=== PATIENT | male | born 1990 | race Caucasian/White ===

== ENCOUNTER 2019-01-11 10:11 | Emergency (ER) | payer SELFPAY ==
[~2019-01-11] VITALS: Ht 180.3 cm; Wt 95.3 kg
[2019-01-11] MEDS ORDERED: DIAZEPAM INJ 10 MG/2 ML (VALIUM) SYR IVP ONE (10:30)
--- NOTE | 2019-01-11 10:32 | ED Neurological Problem ---
General Chief Complaint: Abdominal/GI Problems Stated Complaint: VOMITING; DIZZINESS Nursing Triage Note: WHILE WORKING ON THE [employer] THIS AM HE BECAME DIZZY AND VOMITED 3 TIMES THIS AM. Nursing Sepsis Screen: No Definite Risk Source: patient, family Exam Limitations: no limitations History of Present Illness Date Seen by Provider: Jan 11, 2019 Time Seen by Provider: 10:29 Initial Comments This 28-year-old male presents with dizziness that began this morning after he was up and had gone to work. Patient has had secondary nausea and vomiting. He has had no similar episodes in the past. He denies associated fever, chills, headache, stiff neck, or photophobia. He denies associated lateralizing or localizing neurologic complaints. The patient states that turning his eyes to the left makes his symptoms worse. Allergies and Home Medications Allergies Coded Allergies: No Known Drug Allergies (Unverified , 01/11/19) Patient Home Medication List Home Medication List Reviewed: Yes Review of Systems Review of Systems Constitutional: No chills; dizziness; No fever, No weakness Eyes: Denies Blurred Vision; Other Ears, Nose, Mouth, Throat: denies ear pain (patient's dizziness is made worse by looking to his left), denies ear discharge, denies nose discharge, denies epistaxis Respiratory: No cough Cardiovascular: No chest pain Gastrointestinal: No abdominal pain, No diarrhea; nausea, vomiting Genitourinary: no symptoms reported Musculoskeletal: no symptoms reported Skin: no symptoms reported Psychiatric/Neurological: No Symptoms Reported Endocrine: No Symptoms Reported Hematologic/Lymphatic: No Symptoms Reported Past Gmyqbkt-Yovpma-Npovhc Hx Past Med/Social Hx: Reviewed Nursing Past Med/Soc Hx Patient Social History Alcohol Use: Denies Use Recreational Drug Use: No Smoking Status: Never a Smoker 2nd Hand Smoke Exposure: No Recent Foreign Travel: No Contact w/Someone Who Travel: No Recent Infectious Disease Expo: No Recent Hopitalizations: No Physical Abuse: No Sexual Abuse: No Mistreated: No Fear: No Seasonal Allergies Seasonal Allergies: No Past Medical History Surgeries: No Respiratory: No Cardiac: No Neurological: No Genitourinary: No Gastrointestinal: No Musculoskeletal: No Endocrine: No HEENT: No Cancer: No Psychosocial: No Integumentary: No Blood Disorders: No Physical Exam Vital Signs Vital Signs - First Documented 01/11/19 10:23 Temp 97.2 Pulse 72 Resp 18 B/P (MAP) 120/77 (91) Pulse Ox 97 O2 Delivery Room Air Capillary Refill : Less Than 3 Seconds Height, Weight, BMI Height: 5'11.00" Weight: 210lbs. oz. 95.125899uq; BMI Method:Stated General Appearance: WD/WN, no apparent distress HEENT: normal ENT inspection, other (left lateral nystagmus) Neck: full range of motion, supple Respiratory: lungs clear Cardiovascular: regular rate, rhythm Gastrointestinal: normal bowel sounds, non tender, soft Back: normal inspection Extremities: normal range of motion, non-tender, normal inspection Neurologic/Psychiatric: no motor/sensory deficits, alert, normal mood/affect, oriented x 3 Crainal Nerves: normal speech Motor/Sensory: no motor deficit, no sensory deficit Skin: normal color, warm/dry Progress/Results/Core Measures Results/Orders Lab Results Laboratory Tests Test 01/11/19 10:45 Range/Units White Blood Count 8.2 4.3-11.0 10^3/uL Red Blood Count 5.15 4.35-5.85 10^6/uL Hemoglobin 14.8 13.3-17.7 G/DL Hematocrit 43 40-54 % Mean Corpuscular Volume 84 80-99 FL Mean Corpuscular Hemoglobin 29 25-34 PG Mean Corpuscular Hemoglobin Concent 34 32-36 G/DL Red Cell Distribution Width 12.7 10.0-14.5 % Platelet Count 205 130-400 10^3/uL Mean Platelet Volume 11.0 H 7.4-10.4 FL Neutrophils (%) (Auto) 63 42-75 % Lymphocytes (%) (Auto) 26 12-44 % Monocytes (%) (Auto) 7 0-12 % Eosinophils (%) (Auto) 3 0-10 % Basophils (%) (Auto) 1 0-10 % Neutrophils # (Auto) 5.2 1.8-7.8 X 10^3 Lymphocytes # (Auto) 2.2 1.0-4.0 X 10^3 Monocytes # (Auto) 0.6 0.0-1.0 X 10^3 Eosinophils # (Auto) 0.3 0.0-0.3 10^3/uL Basophils # (Auto) 0.0 0.0-0.1 10^3/uL Erythrocyte Sedimentation Rate 5 0-15 MM/HR Sodium Level 141 135-145 MMOL/L Potassium Level 4.1 3.6-5.0 MMOL/L Chloride Level 101 98-107 MMOL/L Carbon Dioxide Level 24 21-32 MMOL/L Anion Gap 16 H 5-14 MMOL/L Blood Urea Nitrogen 16 7-18 MG/DL Creatinine 1.04 0.60-1.30 MG/DL Estimat Glomerular Filtration Rate > 60 BUN/Creatinine Ratio 15 Glucose Level 112 H 70-105 MG/DL Calcium Level 9.3 8.5-10.1 MG/DL Corrected Calcium 8.5-10.1 MG/DL Total Bilirubin 0.6 0.1-1.0 MG/DL Aspartate Amino Transf (AST/SGOT) 39 H 5-34 U/L Alanine Aminotransferase (ALT/SGPT) 43 0-55 U/L Alkaline Phosphatase 157 H 40-136 U/L Total Protein 7.6 6.4-8.2 GM/DL Albumin 4.7 H 3.2-4.5 GM/DL My Orders Orders - PACHECO MENG MD Cbc With Automated Diff (01/11/19 10:27) Comprehensive Metabolic Panel (01/11/19 10:27) Urinalysis (01/11/19 10:27) Erythrocyte Sedimentation Rate (01/11/19 10:27) Ct Head Wo (01/11/19 10:27) Diazepam Tablet (Valium Tablet) (01/11/19 10:45) Ed Iv/Invasive Line Start (01/11/19 10:36) Medications Given in ED Current Medications Medications Dose Ordered Sig/Brent Route Start Time Stop Time Status Last Admin Dose Admin Diazepam 5 mg ONCE ONCE PO 01/11/19 10:45 01/11/19 10:46 DC 01/11/19 10:45 5 MG Vital Signs/I&O 01/11/19 10:23 Temp 97.2 Pulse 72 Resp 18 B/P (MAP) 120/77 (91) Pulse Ox 97 O2 Delivery Room Air Blood Pressure Mean: 91 Progress Progress Note : Time: 11:[address] was unremarkable. The patient was significantly improved with the 5 mg of Valium orally. I discussed the probable diagnosis of BPPV with the patient. I asked him to utilize Jean maneuvers at home. He was asked follow up closely with his caregiver for further evaluation and treatment. I gave him a note for work for today and tomorrow. Departure Impression Primary Impression: BPPV (benign paroxysmal positional vertigo) Qualified Codes: H81.12 - Benign paroxysmal vertigo, left ear Disposition: 01 HOME, SELF-CARE Condition: Improved Departure-Patient Inst. Decision time for Depature: 12:06 Referrals: [facility] [place] HENNY,LOCAL PHYSICIAN (PCP) Primary Care Physician Patient Instructions: Vertigo (a Type of Dizziness) Add. Discharge Instructions: Valium as prescribed. Jean maneuvers to resolve the dizziness. Close follow- up with her caregiver tomorrow. No work for the next 2 days. Return if any problems or questions. All discharge instructions reviewed with patient and/or family. Voiced understanding. Scripts Diazepam (Valium) 5 Mg Tablet 5 MG PO q6 PRN for DIZZINESS, #14 TAB Prov: PACHECO MENG MD 01/11/19 PACHECO MENG MD Jan 11, 2019 10:32
[2019-01-11] MEDS ORDERED: DIAZEPAM 5 MG (VALIUM) TABLET PO ONE (10:45)
[2019-01-11 10:57] LABS: HEMOGLOBIN 14.8 G/DL (13.3-17.7); MEAN CORPUSCULAR HEMOGLOBIN 29 PG (25-34); WHITE BLOOD COUNT 8.2 10^3/uL (4.3-11.0)
[2019-01-11 10:58] LABS: BASOPHILS % (AUTO) 1 % (0-10); EOSINOPHILS # (AUTO) 0.3 10^3/uL (0.0-0.3); EOSINOPHILS % (AUTO) 3 % (0-10); HEMATOCRIT 43 % (40-54); LYMPHOCYTES # (AUTO) 2.2 X 10^3 (1.0-4.0); LYMPHOCYTES % (AUTO) 26 % (12-44); MEAN CORPUSCULAR HGB CONC 34 G/DL (32-36); MEAN CORPUSCULAR VOLUME 84 FL (80-99); MONOCYTES # (AUTO) 0.6 X 10^3 (0.0-1.0); MONOCYTES % (AUTO) 7 % (0-12); NEUTROPHILS # (AUTO) 5.2 X 10^3 (1.8-7.8); NEUTROPHILS % (AUTO) 63 % (42-75); PLATELET COUNT 205 10^3/uL (130-400); RED CELL DISTRIBUTION WIDTH 12.7 % (10.0-14.5)
--- NOTE | 2019-01-11 11:06 | Diagnostic Imaging Report ---
CLINICAL INDICATION: Patient with dizziness starting this morning. Patient with tingling sensation in feet with nausea and vomiting. EXAM: Axial CT scan of brain. Auto Exposure Controls were utilized during the CT exam to meet ALARA standards for radiation dose reduction. COMPARISON: None. FINDINGS: There is no evidence of acute cerebral infarct, intracranial hemorrhage, or gross mass effect. The brain parenchymal volume appears appropriate for patient's age. There is normal moore-white matter distinction. There is no significant midline shift or herniation. There is no evidence of hydrocephalus. The basal cisterns are unremarkable. The skull, extracranial soft tissue, and orbits are unremarkable. The paranasal sinuses are unremarkable. Temporal bones show no significant abnormality. IMPRESSION: Unremarkable CT scan of the brain. Dictated by: Dictated on workstation # [id number]
[2019-01-11 11:14] LABS: ALANINE AMINOTRANSFERASE 43 U/L (0-55); ALBUMIN 4.7 GM/DL (3.2-4.5); ALKALINE PHOSPHATASE 157 U/L (40-136); BILIRUBIN,TOTAL 0.6 MG/DL (0.1-1.0); BUN/CREATININE RATIO 15; CALCIUM 9.3 MG/DL (8.5-10.1); CARBON DIOXIDE 24 MMOL/L (21-32); CHLORIDE 101 MMOL/L (98-107); CREATININE SERUM 1.04 MG/DL (0.60-1.30); GFR ESTIMATED > 60; GLUCOSE 112 MG/DL (70-105); POTASSIUM 4.1 MMOL/L (3.6-5.0); SODIUM 141 MMOL/L (135-145); TOTAL PROTEIN 7.6 GM/DL (6.4-8.2)
[2019-01-11 11:25] LABS: ERYTHROCYTE SEDIMENTATION RATE 5 MM/HR (0-15)
[2019-01-11] MEDS ORDERED: DIAZ5TAB PO (12:08)
[2019-01-11 12:25] VITALS: BP 118/68
== END 2019-01-11 12:30 | disposition home or self-care (01) ==
LOC: ER FS 10:13
DX: H81.12 Benign paroxysmal vertigo, left ear (principal)
CPT/HCPCS: 36415; 70450; 80053; 85025; 85652

== ENCOUNTER → 2019-09-21 | Outpatient (CLI) | payer SELFPAY ==
[~2019-09-21] MED LIST: DIAZ5TAB PO
--- NOTE | 2019-09-21 14:13 | Diagnostic Imaging Report ---
INDICATION: Abdominal pain. FINDINGS: The bowel gas pattern is nonspecific. No convincing evidence for obstruction. No abnormal fecal loading. There is some mild dural ectasia of a segment of small bowel in the left upper quadrant. No suspicious calcifications. IMPRESSION: Nonspecific bowel gas pattern. No convincing evidence of obstruction or gross pathological fecal loading. Dictated by: Dictated on workstation # [id number]
== END ==
LOC: RAD FS 13:40
PROVIDERS: ATTEND Nurse Practitioner
DX: R10.9 Unspecified abdominal pain (principal)
CPT/HCPCS: 74018

== ENCOUNTER → 2019-09-30 | Outpatient (CLI) | payer SELFPAY ==
[~2019-09-30] MED LIST changes: +BARIUM for suspension 96% w/w (Vanilla Silq Medium Density) PO ONE; +BARIUM for suspension 98% w/w (Vanilla Silq High Density) PO ONE
--- NOTE | 2019-09-30 11:50 | Diagnostic Imaging Report ---
EXAM: Barium swallow esophagram INDICATION: Difficulty swallowing COMPARISON: There are no prior studies available for comparison. The preliminary view of the chest shows no evidence for an acute abnormality. TECHNIQUE: Double contrast exam was performed. FINDINGS: The patient swallowed the contrast material without difficulty. There was no delay or obstruction of the passage of contrast through the esophagus. There was a small sliding hiatal hernia but there was no evidence for gastroesophageal reflux. There is no sign of esophagitis either. A cursory examination of the stomach, duodenum or proximal small bowel shows no acute abnormality. IMPRESSION: 1. There is a small sliding hiatal hernia but there is no evidence for gastroesophageal reflux or for esophagitis. 2. There is no definite abnormality of the stomach, duodenum or proximal small bowel. Dictated by: Dictated on workstation # [id number]
== END ==
LOC: RAD 09:34
PROVIDERS: ATTEND Nurse Practitioner
DX: K44.9 Diaphragmatic hernia without obstruction or gangrene (principal); R19.7 Diarrhea, unspecified; R10.9 Unspecified abdominal pain; R42 Dizziness and giddiness
CPT/HCPCS: 74220

== ENCOUNTER 2022-06-06 04:59 | Observation (INO) | payer SELFPAY ==
[~2022-06-06] VITALS: Ht 180.3 cm; Wt 102.1 kg
[~2022-06-06 04:59] MED LIST changes: -BARIUM for suspension 96% w/w (Vanilla Silq Medium Density) PO ONE; -BARIUM for suspension 98% w/w (Vanilla Silq High Density) PO ONE
[2022-06-06] MEDS ORDERED: LACTATED RINGERS 1,000 ML IV STA (05:19)
--- NOTE | 2022-06-06 05:29 | ED General ---
General Chief Complaint: Abdominal/GI Problems Stated Complaint: VOMITING,R SIDE NUMBNESS Nursing Triage Note: patient states he vomitting started last night, woke up around 0100 with rightsided numbness/tingling. Source of Information: Patient Exam Limitations: No Limitations History of Present Illness Date Seen by Provider: Jun 06, 2022 Time Seen by Provider: 05:07 Initial Comments 31-year-old male with past medical history of BPPV coming in after he started vomiting around 11 PM last night, and around 1 AM noticed numbness in his right arm and some pain in his right shoulder. This is never happened before, but numbness is the entire arm, painful to move his arm. He does not remember tweaking his neck or shoulder area while vomiting. Denies any headache, focal weakness, chest pain, shortness of breath, abdominal pain, dysuria, diarrhea, fever, chills, or any other concerns. When he misses it too much, the vertigo gets worse, and he begins to have nonbloody nonbilious vomit. He has otherwise denying any other acute complaints. Allergies and Home Medications Allergies Coded Allergies: No Known Drug Allergies (Unverified , 01/11/19) Patient Home Medication List Home Medication List Reviewed: Yes Diazepam (Valium) 5 Mg Tablet, 5 MG PO q6 PRN for DIZZINESS Prescribed by: PACHECO MENG MD on 01/11/19 1208 Review of Systems Review of Systems Constitutional: No fever EENTM: no symptoms reported Respiratory: no symptoms reported Cardiovascular: no symptoms reported Gastrointestinal: see HPI Genitourinary: no symptoms reported Musculoskeletal: see HPI Skin: no symptoms reported Psychiatric/Neurological: See HPI Hematologic/Lymphatic: No Symptoms Reported Immunological/Allergic: no symptoms reported All Other Systems Reviewed Negative Unless Noted: Yes Past Ulinkiu-Suidzj-Wirwlo Hx Patient Social History Substance use?: No Seasonal Allergies Seasonal Allergies: No Past Medical History Surgeries: No Respiratory: No Cardiac: No Neurological: No Genitourinary: No Gastrointestinal: No Musculoskeletal: No Endocrine: No HEENT: No Cancer: No Psychosocial: No Integumentary: No Blood Disorders: No Physical Exam Vital Signs Vital Signs - First Documented 06/06/22 05:05 Temp 36.0 Pulse 74 Resp 20 B/P (MAP) 133/80 (97) Pulse Ox 98 O2 Delivery Room Air Capillary Refill : Less Than 3 Seconds Height, Weight, BMI Height: 5'11.00" Weight: 210lbs. oz. 95.670814iz; 30.00 BMI Method:Stated General Appearance: No Apparent Distress, WD/WN Eyes: Bilateral Eye Normal Inspection, Bilateral Eye PERRL, Bilateral Eye EOMI HEENT: PERRL/EOMI, TMs Normal, Normal ENT Inspection, Pharynx Normal Neck: Full Range of Motion, Normal Inspection, Non Tender, Supple Respiratory: Chest Non Tender, Lungs Clear, Normal Breath Sounds, No Accessory Muscle Use, No Respiratory Distress Cardiovascular: Regular Rate, Rhythm, No Edema, Normal Peripheral Pulses Gastrointestinal: Normal Bowel Sounds, Non Tender, Soft; No Distended, No Guarding Back: Normal Inspection, No CVA Tenderness, No Vertebral Tenderness Extremity: Normal Capillary Refill, Normal Inspection, No Calf Tenderness, No Pedal Edema, Other (positive Spurling test on the right, decreased active and p assive range of motion of the right shoulder causing pain, and able to push through it passively, 5 out of 5 strength with shoulder abduction and rotator cuff strength) Neurologic/Psychiatric: Alert, Oriented x3, Normal 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, 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 as Tested, Other (Normal strength, normal radial, median, ulnar nerve motor exam in the right upper extremity, numbness in roughly the C5-C8 dermatome on the right upper extremity) Skin: Normal Color, Warm/Dry Lymphatic: No Adenopathy Progress/Results/Core Measures Suspected Sepsis SIRS Temperature: Pulse: 74 Respiratory Rate: 20 Laboratory Tests 06/06/22 05:26: White Blood Count 6.6 Blood Pressure 133 /80 Mean: 97 Laboratory Tests 06/06/22 05:26: Creatinine 1.02, INR Comment 1.0, Platelet Count 198, Total Bilirubin 0.7 Results/Orders Lab Results Laboratory Tests Test 06/06/22 05:26 Range/Units White Blood Count 6.6 4.3-11.0 10^3/uL Red Blood Count 5.17 4.30-5.52 10^6/uL Hemoglobin 14.6 13.3-17.7 g/dL Hematocrit 42 40-54 % Mean Corpuscular Volume 82 80-99 fL Mean Corpuscular Hemoglobin 28 25-34 pg Mean Corpuscular Hemoglobin Concent 35 32-36 g/dL Red Cell Distribution Width 12.5 10.0-14.5 % Platelet Count 198 130-400 10^3/uL Mean Platelet Volume 10.8 9.0-12.2 fL Immature Granulocyte % (Auto) 1 % Neutrophils (%) (Auto) 53 42-75 % Lymphocytes (%) (Auto) 28 12-44 % Monocytes (%) (Auto) 12 0-12 % Eosinophils (%) (Auto) 6 0-10 % Basophils (%) (Auto) 1 0-10 % Neutrophils # (Auto) 3.5 1.8-7.8 10^3/uL Lymphocytes # (Auto) 1.8 1.0-4.0 10^3/uL Monocytes # (Auto) 0.8 0.0-1.0 10^3/uL Eosinophils # (Auto) 0.4 H 0.0-0.3 10^3/uL Basophils # (Auto) 0.1 0.0-0.1 10^3/uL Immature Granulocyte # (Auto) 0.1 0.0-0.1 10^3/uL Prothrombin Time 13.5 12.2-14.7 SEC INR Comment 1.0 0.8-1.4 Activated Partial Thromboplast Time 32 24-35 SEC Sodium Level 137 135-145 MMOL/L Potassium Level 3.7 3.6-5.0 MMOL/L Chloride Level 100 98-107 MMOL/L Carbon Dioxide Level 29 21-32 MMOL/L Anion Gap 8 5-14 MMOL/L Blood Urea Nitrogen 16 7-18 MG/DL Creatinine 1.02 0.60-1.30 MG/DL Estimat Glomerular Filtration Rate 100 BUN/Creatinine Ratio 16 Glucose Level 108 H 70-105 MG/DL Calcium Level 8.8 8.5-10.1 MG/DL Corrected Calcium 8.5 8.5-10.1 MG/DL Total Bilirubin 0.7 0.1-1.0 MG/DL Aspartate Amino Transf (AST/SGOT) 45 H 5-34 U/L Alanine Aminotransferase (ALT/SGPT) 81 H 0-55 U/L Alkaline Phosphatase 146 H 40-136 U/L Troponin I < 0.30 <0.30 NG/ML Total Protein 7.3 6.4-8.2 GM/DL Albumin 4.4 3.2-4.5 GM/DL My Orders Orders - KAYA FONG MD Cbc With Automated Diff (06/06/22 05:19) Protime With Inr (06/06/22 05:19) Partial Thromboplastin Time (06/06/22 05:19) Comprehensive Metabolic Panel (06/06/22 05:19) Troponin I Fs (06/06/22 05:19) Ua Culture If Indicated (06/06/22 05:19) Chest 1 View Ap/Pa Only (06/06/22 05:19) Ekg Tracing (06/06/22 05:19) Ed Iv/Invasive Line Start (06/06/22 05:19) Vital Signs Stroke Patient Q15M (06/06/22 05:19) Ct Head Wo-R/O Stroke (06/06/22 05:19) O2 (06/06/22 05:19) Monitor-Rhythm Ecg Trace Only (06/06/22 05:19) Dysphagia Screening Tool Q10MX1 (06/06/22 05:19) Ct Cervical Spine Wo (06/06/22 05:19) Ondansetron Injection (Zofran Injectio (06/06/22 05:30) Lactated Ringers (Lr 1000 Ml Iv Solution (06/06/22 05:19) Meclizine Tablet (Antivert Tablet) (06/06/22 05:30) Ct Angio Head/Neck (06/06/22 06:09) Iohexol Injection (Omnipaque 350 Mg/Ml 1 (06/06/22 06:30) Received Contrast (Hold Metformin- Contr (06/06/22 06:30) Sodium Chloride Flush (Catheter Flush Sy (06/06/22 06:30) Ns (Ivpb) (Sodium Chloride 0.9% Ivpb Bag (06/06/22 06:30) Medications Given in ED Current Medications Medications Dose Ordered Sig/Brent Route Start Time Stop Time Status Last Admin Dose Admin Iohexol 75 ml ONCE ONCE IV 06/06/22 06:30 06/06/22 06:33 DC 06/06/22 06:43 75 ML Meclizine HCl 25 mg ONCE ONCE PO 06/06/22 05:30 06/06/22 05:31 DC 06/06/22 05:33 25 MG Ondansetron HCl 4 mg ONCE ONCE IVP 06/06/22 05:30 06/06/22 05:31 DC 06/06/22 05:33 4 MG Sodium Chloride 10 ml NEEDED PRN IV 06/06/22 06:30 06/06/22 06:43 10 ML Sodium Chloride 100 ml ONCE ONCE IV 06/06/22 06:30 06/06/22 06:33 DC 06/06/22 06:43 86 ML Vital Signs/I&O 06/06/22 05:05 Temp 36.0 Pulse 74 Resp 20 B/P (MAP) 133/80 (97) Pulse Ox 98 O2 Delivery Room Air Capillary Refill : Less Than 3 Seconds Blood Pressure Mean: 97 Progress Note : Progress Note 31-year-old male with above history coming in due to right arm numbness. ABCs were intact and vitals were stable on presentation. Physical exam with right arm numbness starting from the axilla all the way down to his entire hand. Sensation picks back up around his lateral border of his trap. His initial NIH performed by me at 0510 was 1 for sensory loss to his right upper extremity. He is technically Spurling positive so could be cervical spine related. CT head and cervical spine ordered and showed no acute abnormality. An IV was placed and basic labs were obtained for basic stroke work-up which I think is unlikely that it is true ischemic stroke given his age and lack of risk factors. EKG showing sinus rhythm with no acute ischemic changes on my interpretation. Differential still includes after ruling out hemorrhagic stroke or obvious bony pathology in the cervical spine, dissection going up his neck versus less likely ischemic stroke in his brain versus less likely ischemic stroke in his spine. I contacted the stroke neurologist provider relations representative, Dr. Villagran, and discussed the patients case. She recommends a CTA of his head and neck at this time. If this is negative, she recommended observation admission for an MRI of his brain and cervical spine. She does not recommend giving tPA at this time given he presented more than 4 hours after initial symptoms as well as the possibility that its not ischemic stroke. I contacted Dr. Ruby tentatively. If the CTA head and neck is negative then she will accept the patient under observation admission for an MRI of the brain and cervical spine per recommendations from neurology. If this is the case, the patient would like to go private vehicle which given his stable vitals and no need for interventions at this time sounds appropriate. We will have him sign a refusal form for an ambulance if this is the case. If the CTA is positive for some type of vascular abnormality that would cause his symptoms, the patient would need to be admitted to a different hospital for higher level of care. Patient signed out to the oncoming physician pending this work-up. ECG Initial ECG Impression Date: Jun 06, 2022 Initial ECG Impression Time: 05:32 Initial ECG Rate: 66 Initial ECG Rhythm: Normal Sinus Comment Narrow QRS, normal axis, no significant ST changes or T wave abnormalities Diagnostic Imaging Diagonstic Imaging: Xray (chest), CT (head and cervical spine) Comments [facility] [place], [place] NAME: CECE SMART [facility] REC#: [id number] PT STATUS: REG ER : 1990 PHYSICIAN: KAYA FONG MD ADMIT DATE: 06/06/22/ER FS Signed Date of Exam:06/06/22 CT HEAD WO-R/O STROKE PROCEDURE: CT head wo r/o stroke. TECHNIQUE: Multiple contiguous axial images were obtained through the brain without the use of intravenous contrast. Auto Exposure Controls were utilized during the CT exam to meet ALARA standards for radiation dose reduction. INDICATION: Right upper extremity paresthesia and emesis COMPARISON: 01/11/2019 CT HEAD: CT images of the head were obtained. FINDINGS: Ventricles and sulci are within normal limits for size. There is no intracranial hemorrhage identified. There is no abnormal mass effect or shift of midline structures. IMPRESSION: Unremarkable CT of the head. Dictated by: Dictated on workstation # [id number] Dict: 06/06/22 0550 Trans: 06/06/22 0551 [id number] Interpreted by: JOSE CARVER MD Electronically signed by: JOSE CARVER MD 06/06/22 0551 [facility] [place], [place] NAME: CECE SMART [facility] REC#: [id number] PT STATUS: REG ER : 1990 PHYSICIAN: KAYA FONG MD ADMIT DATE: 06/06/22/ER FS Draft Date of Exam:06/06/22 CT CERVICAL SPINE WO PROCEDURE: CT cervical spine without contrast. TECHNIQUE: Multiple contiguous axial images were obtained through the cervical spine without the use of intravenous contrast. Sagittal and coronal reformations were then performed. Auto Exposure Controls were utilized during the CT exam to meet ALARA standards for radiation dose reduction. INDICATION: Right upper extremity paresthesia There is reversal of the cervical lordosis which has a chronic appearance. Vertebral body heights and disc spaces are maintained. There is no evidence of acute fracture or malalignment. There is no evidence of paraspinous hematoma. IMPRESSION: Reversal of the cervical lordosis of chronic nature without CT evidence of acute cervical spinal abnormality. Dictated on workstation # [id number] Dict: 06/06/22 0552 Trans: 06/06/22 0555 [id number] Interpreted by: JOSE CARVER MD Electronically signed by: [facility]. [place], [place] NAME: CECE SMART [facility] REC#: [id number] PT STATUS: REG ER : 1990 PHYSICIAN: KAYA FONG MD ADMIT DATE: 06/06/22/ER FS Signed Date of Exam:06/06/22 CHEST 1 VIEW AP/PA ONLY Indication: Cerebrovascular accident with right upper extremity paresthesia Single AP view of the chest is obtained. COMPARISON: No previous study is available for comparison at this time. FINDINGS: Heart size and pulmonary vasculature are within normal limits, and the lungs are clear, bilaterally. IMPRESSION: Unremarkable chest. Dictated by: Dictated on workstation # [id number] Dict: 06/06/22 0551 Trans: 06/06/22 0552 [id number] Interpreted by: JOSE CARVER MD Electronically signed by: JOSE CARVER MD 06/06/22 0552 Departure Impression Primary Impression: Right arm numbness Additional Impression: Vertigo Disposition: 30 STILL A PATIENT Condition: Stable Admissions Decision to Admit Reason: Admit from ER (General) Decision to Admit/Date: Jun 06, 2022 Time/Decision to Admit Time: 06:40 Transfer Transfer Facility: [facility] Method of Transfer: Private Vehicle Departure-Patient Inst. [facility] [place] Primary Care Physician KAYA FONG MD Jun 06, 2022 05:29
[2022-06-06] MEDS ORDERED: ONDANSETRON 4 MG/2 ML (SDV) Z0FRAN IVP ONE (05:30)
[2022-06-06] MEDS ORDERED: MECLIZINE 25 MG (ANTIVERT) TAB PO ONE (05:30)
[2022-06-06 05:38] LABS: BASOPHILS # (AUTO) 0.1 10^3/uL (0.0-0.1); BASOPHILS % (AUTO) 1 % (0-10); EOSINOPHILS # (AUTO) 0.4 10^3/uL (0.0-0.3); EOSINOPHILS % (AUTO) 6 % (0-10); HEMATOCRIT 42 % (40-54); HEMOGLOBIN 14.6 g/dL (13.3-17.7); LYMPHOCYTES # (AUTO) 1.8 10^3/uL (1.0-4.0); LYMPHOCYTES % (AUTO) 28 % (12-44); MEAN CORPUSCULAR HEMOGLOBIN 28 pg (25-34); MEAN CORPUSCULAR HGB CONC 35 g/dL (32-36); MEAN CORPUSCULAR VOLUME 82 fL (80-99); MEAN PLATELET VOLUME 10.8 fL (9.0-12.2); MONOCYTES # (AUTO) 0.8 10^3/uL (0.0-1.0); MONOCYTES % (AUTO) 12 % (0-12); NEUTROPHILS # (AUTO) 3.5 10^3/uL (1.8-7.8); NEUTROPHILS % (AUTO) 53 % (42-75); PLATELET COUNT 198 10^3/uL (130-400); WHITE BLOOD COUNT 6.6 10^3/uL (4.3-11.0)
--- NOTE | 2022-06-06 05:52 | Diagnostic Imaging Report ---
PROCEDURE: CT head wo r/o stroke. TECHNIQUE: Multiple contiguous axial images were obtained through the brain without the use of intravenous contrast. Auto Exposure Controls were utilized during the CT exam to meet ALARA standards for radiation dose reduction. INDICATION: Right upper extremity paresthesia and emesis COMPARISON: 01/11/2019 CT HEAD: CT images of the head were obtained. FINDINGS: Ventricles and sulci are within normal limits for size. There is no intracranial hemorrhage identified. There is no abnormal mass effect or shift of midline structures. IMPRESSION: Unremarkable CT of the head. Dictated by: Dictated on workstation # [id number]
--- NOTE | 2022-06-06 05:53 | Diagnostic Imaging Report ---
Indication: Cerebrovascular accident with right upper extremity paresthesia Single AP view of the chest is obtained. COMPARISON: No previous study is available for comparison at this time. FINDINGS: Heart size and pulmonary vasculature are within normal limits, and the lungs are clear, bilaterally. IMPRESSION: Unremarkable chest. Dictated by: Dictated on workstation # [id number]
--- NOTE | 2022-06-06 05:56 | Diagnostic Imaging Report ---
PROCEDURE: CT cervical spine without contrast. TECHNIQUE: Multiple contiguous axial images were obtained through the cervical spine without the use of intravenous contrast. Sagittal and coronal reformations were then performed. Auto Exposure Controls were utilized during the CT exam to meet ALARA standards for radiation dose reduction. INDICATION: Right upper extremity paresthesia There is reversal of the cervical lordosis which has a chronic appearance. Vertebral body heights and disc spaces are maintained. There is no evidence of acute fracture or malalignment. There is no evidence of paraspinous hematoma. IMPRESSION: Reversal of the cervical lordosis of chronic nature without CT evidence of acute cervical spinal abnormality. Dictated by: Dictated on workstation # [id number]
[2022-06-06 06:05] LABS: SODIUM 137 MMOL/L (135-145)
[2022-06-06 06:06] LABS: ALANINE AMINOTRANSFERASE 81 U/L (0-55); ALBUMIN 4.4 GM/DL (3.2-4.5); ALKALINE PHOSPHATASE 146 U/L (40-136); BILIRUBIN,TOTAL 0.7 MG/DL (0.1-1.0); BUN/CREATININE RATIO 16; CALCIUM 8.8 MG/DL (8.5-10.1); CARBON DIOXIDE 29 MMOL/L (21-32); CHLORIDE 100 MMOL/L (98-107); CREATININE SERUM 1.02 MG/DL (0.60-1.30); GFR ESTIMATED 100; GLUCOSE 108 MG/DL (70-105); POTASSIUM 3.7 MMOL/L (3.6-5.0); TOTAL PROTEIN 7.3 GM/DL (6.4-8.2)
[2022-06-06 06:08] LABS: PROTHROMBIN TIME PATIENT 13.5 SEC (12.2-14.7)
[2022-06-06] MEDS ORDERED: CATHETER FLUSH 10 ML SYR IV PRN (06:30)
[2022-06-06] MEDS ORDERED: NS 100 ML (IVPB) BAG IV ONE (06:30)
[2022-06-06] MEDS ORDERED: HOLD METFORMIN - RECEIVED CONTRAST 20 ML VIAL IV SCH (06:30)
[2022-06-06] MEDS ORDERED: IOHEXOL 350 MG/ML 100 ML (OMNIPAQUE 350) VIAL IV ONE (06:30)
--- NOTE | 2022-06-06 07:26 | Diagnostic Imaging Report ---
PROCEDURE: CT angiography of the head and CT angiography of the neck with and without contrast. TECHNIQUE: Contiguous noncontrast images were obtained from the skull base through the vertex. After intravenous contrast administration, helical CT angiography of the neck was performed. Source data was reformatted into 3D MIP projections. Delayed post contrast acquisition was also obtained. Auto Exposure Controls were utilized during the CT exam to meet ALARA standards for radiation dose reduction. INDICATION: Emesis and right upper extremity paresthesia There is a normal three-vessel branching pattern arising from the aortic arch. Carotid arteries are of normal caliber and widely patent. Both vertebral arteries are also patent through the neck. There is tortuosity of distal internal carotid arteries, particularly on the left however no stenosis or occlusion is identified and there is no evidence of filling defect. Anterior, middle and posterior cerebral arteries are patent without evidence of stenosis or occlusion. No filling defect is identified. There is no evidence of aneurysm or vascular malformation. There is no evidence of abnormal contrast enhancement. IMPRESSION: No CTA evidence of great vessel abnormality within the head or neck. Note is made of extensive mural thickening in the right maxillary sinus could be due to chronic sinusitis. Lesser mural thickening is seen within the left maxillary sinus and left sphenoid sinus. Dictated by: Dictated on workstation # [id number]
[2022-06-06 09:03] VITALS: BP 127/84
[2022-06-06] MEDS ORDERED: MELATONIN 3 MG TABLET PO PRN (09:30)
[2022-06-06] MEDS ORDERED: ONDANSETRON 4 MG/2 ML (SDV) Z0FRAN IV PRN (09:30)
[2022-06-06] MEDS ORDERED: polyethylene glycoL POWDER 17 GM (MIRALAX) PACK PO PRN (09:30)
[2022-06-06] MEDS ORDERED: ACETAMINOPHEN 325 MG TABLET PO PRN (09:30)
[2022-06-06] MEDS ORDERED: NS IV 1000 ML 1,000 ML IV SCH (09:30)
[2022-06-06] MEDS ORDERED: ENOXAPARIN 40 MG/0.4 ML (LOVENOX) SYR SC SCH (09:30)
[2022-06-06] MEDS ORDERED: ONDANSETRON 4 MG (ZOFRAN) ORAL DISSOLVE TAB PO PRN (09:30)
[2022-06-06] MEDS ORDERED: diphenhydrAMINE 50 MG/ML INJ (BENADRYL) IVP PRN (09:30)
[2022-06-06] MEDS ORDERED: morphine INJ 4 MG/ML 1 ML (VIAL/SYRINGE) IV PRN (09:30)
[2022-06-06] MEDS ORDERED: diphenhydrAMINE 25 MG TAB (BENADRYL) PO PRN (09:30)
[2022-06-06] MEDS ORDERED: BISACODYL 10 MG SUPP (DULCOLAX) PR PRN (09:30)
[2022-06-06] MEDS ORDERED: ANTACID SUSP 30 ML UDC (MYLANTA) PO PRN (09:30)
[2022-06-06 09:43] VITALS: BP 127/84
[2022-06-06] MEDS ORDERED: FLU QUADRIvalent (6 months+) 60 mcg/0.5 ml 2022-23 (Fluzone) IM ONE (10:30)
[2022-06-06] MEDS ORDERED: GADOTERATE 0.5 MMOL/ML (CLARISCAN) 20 ML VIAL IV ONE (10:45)
[2022-06-06 11:15] VITALS: BP 130/79
--- NOTE | 2022-06-06 11:30 | Diagnostic Imaging Report ---
PROCEDURE: MR imaging of the brain with and without contrast. TECHNIQUE: Multiplanar, multisequence MR imaging of the brain was performed with and without contrast. INDICATION: Right-sided arm weakness. FINDINGS: No diffusion restriction is identified. The normal expected flow-voids within the carotid siphons are seen. Ventricles and sulci are within normal limits. No acute intra-axial or extra-axial hemorrhage is detected. No abnormal enhancement following contrast administration is identified. The corpus callosum is unremarkable. The sella and parasellar structures are unremarkable. Note is made of significant mucosal thickening of the right maxillary sinus. IMPRESSION: Unremarkable pre and post contrast MRI of the brain. Dictated by: Dictated on workstation # [id number]
--- NOTE | 2022-06-06 11:38 | Diagnostic Imaging Report ---
PROCEDURE: MR imaging cervical spine without contrast. TECHNIQUE: Multiplanar, multisequence MR imaging of the cervical spine was performed without contrast. INDICATION: Right-sided arm weakness. FINDINGS: There is reversal of the normal cervical lordotic curvature. No focal marrow signal abnormality is seen. There appears to be fairly normal height and signal intensity to the cervical intervertebral discs. The cervical spinal cord shows normal homogeneous signal intensity and normal morphology. Craniocervical junction is unremarkable. C2-C3: No central canal or neural foraminal narrowing is seen. C3-C4: No central canal or neural foraminal narrowing is detected. C4-C5: No central canal or neural foraminal narrowing is detected. C5-C6: No central canal or neural foraminal stenosis is identified. C6-C7: No central canal or neural foraminal stenosis is identified. C7-T1: No central canal or neural foraminal stenosis is identified. Paraspinous tissues are unremarkable. IMPRESSION: There is reversal of the normal cervical lordotic curvature. However, no focal disc protrusion, central canal or neural foraminal stenosis is identified. Dictated by: Dictated on workstation # [id number]
--- NOTE | 2022-06-06 11:52 | Occ Therapy Progress Note ---
Therapy Progress Note OT orders received and chart reviewed. OT visited with pt and visitor. Pt indicates his RUE is numb/tingly, & does not have light touch sensation. Pt denies concerns with functional mobility and ADLs at this time, his main concern is RUE function. Pt has functional movement throughout RUE, but reports increased pain with all movement, especially in his shoulder. OT educated pt on performing exercises and using RUE as able throughout the day, he verbalized understanding. OT will meet with pt again tomorrow to reassess RUE function. 1, visit CARISSA CHIANG OT Jun 06, 2022 11:52
--- NOTE | 2022-06-06 12:31 | Short Stay Summary-Hospitalist ---
KEDAR BUCKLEY 06/06/22 1231: History of Present Illness HPI/Chief Complaint Man Linares is a 31 year-old male with past medical history of BPPV who presented to the [facility] ED with new onset right arm numbness and pain. His BPPV caused him to become nauseous and vomit (non-bloody, non-bilious) several times overnight, and a couple hours after the start of the vomiting he noticed numbness and a tingling sensation throughout his right arm plus pain with movement of the right arm. This phenomenon has not ever happened to him before. Review of systems was positive for nausea, weakness (R arm), & tingling/numbness (R arm). Denies headache, changes in vision or hearing, fever/chills, chest pain, cough, shortness of breath, abdominal pain, diarrhea, dysuria/hematuria. Vitals and labs (CBC, CMP, coagulation studies) were within normal limits with the exception of mild elevations in AST, ALT, & alk phos. Meclizine, Zofran, and IV fluids were administered in the ED. EKG showed normal sinus rhythm, and CXR was normal. Mr. Linares underwent extensive imaging including CT head, CT cervical spine, CTA head/neck, MRI brain, & MRI cervical spine, all of which were negative for acute pathology. Source: patient Exam Limitations: no limitations Date Seen 06/06/22 Time Seen by a Provider: 09:30 Attending Physician [facility] PCP Admitting Physician: Mary Ruby DO Attending Physician: Mary Ruby DO Referring Physician Date of Admission Jun 06, 2022 at 08:46 Home Medications & Allergies Home Medications Reviewed patient Home Medication Reconciliation performed by pharmacy medication reconciliations operating theatre technician and/or nursing. Patients Allergies have been reviewed. Allergies Allergies Coded Allergies hydrocodone (Verified Allergy, Unknown, 06/06/22) Past Medical/Social/Family Hx Patient Social History Tobacco Use?: No Smoking Status: Never a Smoker Smokeless Tobacco Frequency: Never a User Use of E-Cig and/or Vaping dev: No E-Cig and/or Vaping Freq: Never a User Substance use?: No Alcohol Use?: Yes Alcohol Frequency: Once in a while Pt stated abuse/neglect: No Immunizations Up To Date Influenza Vaccine Up-to-Date: No; Not Current Current Status Advance Directives: No Communicates: Verbally Primary Language: [place]er Preferred Spoken Language: [place]er Is interpretation needed?: No Sensory deficits: Vision impairment Implanted or Applied Medical D: None Past Medical History Benign paroxysmal positional vertigo (BPPV) Review of Systems Constitutional: dizziness EENTM: no symptoms reported Respiratory: no symptoms reported Cardiovascular: no symptoms reported Gastrointestinal: nausea, vomiting Genitourinary: no symptoms reported Musculoskeletal: muscle weakness Skin: no symptoms reported Psychiatric/Neurological: Numbness, Tingling Physical Exam Physical Exam Vital Signs Vital Signs - First Documented 06/06/22 05:05 Temp 36.0 Pulse 74 Resp 20 B/P (MAP) 133/80 (97) Pulse Ox 98 O2 Delivery Room Air Capillary Refill : Less Than 3 Seconds Height, Weight, BMI Height: 5'11.00" Weight: 210lbs. oz. 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 Moderately decreased R-sided handgrip strength. Pain with movement of R arm. Normal exam of R leg.), Sensory Deficit (Absent sensation to touch throughout R arm. Normal on L. Normal exam of R leg.) Skin: Normal Color, Warm/Dry Lymphatic: No Adenopathy Results Results/Procedures Labs Laboratory Tests 06/06/22 05:26 Patient resulted labs reviewed. Imaging: Reviewed Imaging Films, Reviewed Imaging Report Short Stay Diagnosis Discharge Diagnosis-Short Stay Admission Diagnosis Benign paroxysmal positional vertigo; New onset right arm numbness & pain-- rule out TIA/stroke Final Discharge Diagnosis Benign paroxysmal positional vertigo; Idiopathic neuropathy of right arm Conclusion Plan Man Linares is a 31-year-old male with PMH significant for BPPV who was admitted for observation and imaging after experiencing new onset right arm pain, weakness, and numbness that developed after an episode of nausea and vomiting caused by his vertigo. Extensive lab workup, physical examination, and imaging were all negative for any evidence of cerebrovascular or musculoskeletal pathology (please see HPI for more details). PT & OT both worked with Mr. Linares during his stay & instructed him to continue to use his right arm as able, as well as coaching him on arm exercises to use. Mr. Linares lives in [place] and said that he does not have a PCP there. We recommended that he establish care with a local provider, as well as possibly a neurologist to help manage his BPPV. Importantly, he reluctantly admitted to us that he has noticed blood on the toilet paper intermittently after defecating for the past ~8-9 months. We strongly encouraged him to follow-up on this issue on an outpatient basis. Mr. Linares and his partner were agreeable to discharge home via personal vehicle. MARY RUBY DO 06/07/22 0523: Supervisory-Addendum Brief Verification & Attestation Participated in pt care: history, MDM, physical Personally performed: exam, history, MDM, supervision of care Care discussed with: Medical Student Procedures: n/a Results interpretation: Verified all documentation Verification and Attestation of Medical Student E/M Service A medical student performed and documented this service in my presence. I reviewed and verified all information documented by the medical student and made modifications to such information, when appropriate. I personally performed the physical exam and medical decision making. Mary Ruby, Jun 07, 2022,05:23 KEDAR BUCKLEY Jun 06, 2022 12:31 MARY RUBY DO Jun 07, 2022 05:23
--- NOTE | 2022-06-06 13:40 | Physical Therapy Progress Note ---
Therapy Progress Note Order for PT evaluation received. Patient states he is independent with mobility, no trouble with transfers or ambulation, or toileting. Patient states his issue is with weakness and tingling and numbness in his right arm. Patient has 4/5 elbow flexion, 3/5 elbow extension, 2/5 shoulder flexion and abduction. 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 Patient has no pain with palpation of the neck or shoulder. Patient has no increased pain with axial loading, cervical rotation or sidebending, or with a spurling test. Patient is being discharged from the hospital today. He will be discharged from PT services at this time. RAMAN ENGLISH PT Jun 06, 2022 13:40
[2022-06-06 13:50] VITALS: BP 130/79
[2022-06-06] MEDS ORDERED: DOCUSATE SODIUM 100 MG (COLACE) CAP PO SCH (21:00)
== END 2022-06-06 13:50 | disposition home or self-care (01) ==
LOC: EDUNIT# 04:59 → ER FS 05:00 → UNDOADMOB 08:46 → 4TH 08:46 → UNDODISOB 13:50
PROVIDERS: ADMIT Internal Medicine; ATTEND Internal Medicine
DX: H81.10 Benign paroxysmal vertigo, unspecified ear (principal); M79.601 Pain in right arm
CPT/HCPCS: 36415; 70450; 70496; 70498; 70553; 71045; 72125; 72141; 80053; 84484; 85025; 85610; 85730; 93005; 93041; Q9967

== ENCOUNTER 2023-01-27 17:43 | Emergency (ER) | payer SELFPAY ==
[2023-01-27] MEDS ORDERED: CEPHALEXIN 250 MG CAPSULE PO STA (17:56)
[2023-01-27] MEDS ORDERED: CEPH500T PO (18:00)
[2023-01-27] MEDS ORDERED: IBUPROFEN 600 MG TABLET PO ONE (18:00)
[2023-01-27] MEDS ORDERED: DOXY100T2 PO (18:00)
--- NOTE | 2023-01-27 18:01 | ED Lower Extremity ---
General Chief Complaint: Lower Extremity Stated Complaint: SPIDER BITE ON L ANKLE FOR 2 WEEKS Source: patient Exam Limitations: no limitations History of Present Illness Date Seen by Provider: Jan 27, 2023 Time Seen by Provider: 17:45 Initial Comments 32-year-old male with no pertinent past medical history coming in due to right lateral ankle concerns for infection. He woke up 1 day and had what looked like a chigger bite on his right lateral ankle. He was concerned it could be a spider bite. Its been getting more red and having clear drainage. It is fairly itchy and painful at times. He has not taken anything for it as of yet. Otherwise denying any other acute complaints. Tetanus is up-to-date within the past 10 years. Allergies and Home Medications Allergies Coded Allergies: hydrocodone (Verified Allergy, Unknown, 06/06/22) Patient Home Medication List Home Medication List Reviewed: Yes No Active Prescriptions or Reported Meds Review of Systems Constitutional: No fever EENTM: no symptoms reported Respiratory: no symptoms reported Cardiovascular: no symptoms reported Gastrointestinal: no symptoms reported Genitourinary: no symptoms reported Musculoskeletal: no symptoms reported Skin: see HPI Psychiatric/Neurological: No Symptoms Reported Past Sjhsdhe-Tsfwtd-Zresms Hx Patient Social History Tobacco Use?: No Use of E-Cig and/or Vaping dev: No Substance use?: No Alcohol Use?: No Pt feels they are or have been: No Immunizations Up To Date First/Initial COVID19 Vaccinat: Denies Seasonal Allergies Seasonal Allergies: No Past Medical History Surgery/Hospitalization HX: Denies Surgeries: No Respiratory: No Cardiac: No Neurological: No Genitourinary: No Gastrointestinal: No Musculoskeletal: No Endocrine: No HEENT: No Cancer: No Psychosocial: No Integumentary: No Blood Disorders: No Physical Exam Vital Signs Capillary Refill : Height, Weight, BMI Height: 5'11.00" Weight: 210lbs. oz. 95.803916ky; 31.40 BMI Method:Stated General Appearance: WD/WN, no apparent distress HEENT: PERRL/EOMI, normal ENT inspection, pharynx normal Neck: non-tender, full range of motion, supple, normal inspection Cardiovascular: regular rate, rhythm, no edema, no murmur Respiratory: chest non-tender, lungs clear, normal breath sounds, no respiratory distress, no accessory muscle use Ankles: right ankle other (Right lateral ankle with overlying erythema that is blanching, clear drainage noted, no purulent drainage, no fluctuance) Neurologic/Psychiatric: alert Skin: warm/dry, rash Progress/Results/Core Measures Results/Orders My Orders Orders - KAYA FONG MD Cephalexin Capsule (Cephalexin Capsule) (01/27/23 17:56) Doxycycline Hyclate Tablet (Doxycycline (01/27/23 17:56) Ibuprofen Tablet (Ibuprofen Tablet) (01/27/23 18:00) Progress Progress Note : Progress Note 32-year-old male with above history coming in due to concerns for an infection around his right lateral ankle. ABCs were intact and vitals were stable on presentation. Physical exam does appear consistent with cellulitis. I do not feel any fluctuance, and when I used an ultrasound I do not see any fluid collection that would be concerning for an abscess. Could have been a bug bite that has later turned into an infection which is the likely scenario. We will give him antibiotics here followed by prescription. He is up-to-date on tetanus. I believe he is otherwise stable for discharge with outpatient follow-up. He was sent home with strict return precautions. Departure Impression Primary Impression: Cellulitis Qualified Codes: L03.115 - Cellulitis of right lower limb Disposition: HOME, SELF-CARE Condition: Stable Departure-Patient Inst. Decision time for Depature: 18:10 Referrals: [facility] (PCP/Family) Primary Care Physician Patient Instructions: Cellulitis (Skin Infection), Adult ED Add. Discharge Instructions: This potentially started as a bug bite or sting and now has turned into an infection. You will be on 2 different antibiotics for the next 10 days. Take ibuprofen as needed for pain. You can take [id number] Zyrtec as needed for itching. Scripts Doxycycline Hyclate (Doxycycline Hyclate) 100 Mg Tablet 100 MG PO BID for 10 Days, #20 TAB 0 Refills Prov: KAYA FONG MD 01/27/23 Cephalexin (Cephalexin) 500 Mg Tablet 500 MG PO QID for 10 Days, #40 TAB Prov: KAYA FONG MD 01/27/23 Work/School Note: Family Work Note, Patient Received Medical Care In the Emergency Department On: Jan 27, 2023 Patient Will Be Able to Return to Work/School On: Jan 28, 2023 Work Release Form Date Seen in the Emergency Department: Jan 27, 2023 Return to Work: Jan 28, 2023 Restrictions: No Restrictions KAYA FONG MD Jan 27, 2023 18:01
[2023-01-27 18:06] VITALS: BP 136/87
== END 2023-01-27 18:02 | disposition home or self-care (01) ==
LOC: EDUNIT# 17:43 → ER FS 17:44
DX: L03.115 Cellulitis of right lower limb (principal); Z28.310 Unvaccinated for COVID-19
CPT/HCPCS: 99283